=== PATIENT | female | born 1985 | race Caucasian/White ===

== ENCOUNTER 2017-05-05 12:32 | Outpatient (CLI) | payer BC ==
[2017-05-05] VITALS (9 sets, daily range): BP systolic 148–192; BP diastolic 73–109
[~2017-05-05] VITALS: Ht 157.5 cm; Wt 96.6 kg
[2017-05-05 13:35] LABS: BASOPHIL (%) 0.2 % (0-1); EOSINOPHIL (%) 0.6 % (0-5); EOSINOPHIL COUNT 0.1 K/uL (0-0.3); HEMATOCRIT 35.2 % (36.0-46.0); IMMATURE GRANULOCYTE (%) 0.5 % (0.0-0.7); LYMPHOCYTE (%) 17.3 % (15-42); LYMPHOCYTE COUNT 2.2 K/uL (1.0-2.8); MCH 29.6 PG (29.0-34.0); MCHC 34.1 G/DL (30.0-36.0); MCV 86.7 FL (83-99); MONOCYTE (%) 6.3 % (3-12); MONOCYTE COUNT 0.8 K/uL (0-0.8); NEUTROPHIL (%) 75.1 % (45-76); NEUTROPHIL COUNT 9.4 K/uL (1.8-6.4); PLATELET COUNT 291 K/uL (156-360); RBC DIS.WIDTH-CV 14.5 % (11.8-14.6); RBC DIS.WIDTH-SD 46.4 % (39-53); RED BLOOD COUNT 4.06 M/uL (3.80-5.20); WHITE BLOOD COUNT 12.6 K/uL (4.1-10.2)
[2017-05-05 13:53] LABS: ALBUMIN 3.3 G/DL (3.2-4.8); CHLORIDE 108 MEQ/L (99-109); POTASSIUM 4.1 MEQ/L (3.7-5.4); SODIUM 137 MEQ/L (136-147); TOTAL BILIRUBIN 0.3 MG/DL (0.0-1.0)
[2017-05-05 13:59] LABS: ALKALINE PHOSPHATASE 79 IU/L (3-129); ALT (GPT) 14 IU/L (3-49); AST (GOT) 14 IU/L (2-34); CREATININE 0.5 MG/DL (0.6-1.3); GFR ESTIMATE (CALCULATED) > 59 mL/min/; GLUCOSE 79 mg/dL (70-99); LACTATE DEHYDROGENASE 146 IU/L (20-246); TOTAL PROTEIN 6.7 G/DL (6.4-8.3); UREA NITROGEN (BUN) 9 mg/dL (9-23); URIC ACID 5.6 mg/dL (3.1-9.2)
[2017-05-05 15:52] LABS: UR CREATININE CONCENTRATION 69.1 MG/DL
[2017-05-05] MEDS ORDERED: PRENATAL TABLE1 EACH PO (16:35)
[2017-05-05] MEDS ORDERED: CHILD ASPIRIN81 M1 PO (16:35)
== END 2017-05-05 18:20 | disposition short-term general hospital (02) ==
LOC: LDRP-OP → 2WEST 12:34 → LDRP-OP 08-30 12:51
PROVIDERS: Obstetrics & Gynecology
DX: O14.12 Severe pre-eclampsia, second trimester (principal); Z3A.27 27 weeks gestation of pregnancy; O99.212 Obesity complicating pregnancy, second trimester; E66.9 Obesity, unspecified; Z68.32 Body mass index [BMI] 32.0-32.9, adult; O34.219 Maternal care for unspecified type scar from previous cesarean delivery; Z87.891 Personal history of nicotine dependence
CPT/HCPCS: 59025; 76818; 80053; 82570; 83615; 84156; 84550; 85025; 87086; G0378; J0702; J3475; J7120

== ENCOUNTER 2017-05-22 12:03 | Emergency (ER) | payer BC ==
[~2017-05-22] VITALS: Ht 157.5 cm; Wt 89.8 kg
[~2017-05-22 12:03] MED LIST: CHILD ASPIRIN81 M1 PO; PRENATAL TABLE1 EACH PO
[2017-05-22 14:12] LABS: HEMATOCRIT 38.1 % (36.0-46.0); HEMOGLOBIN 13.1 G/DL (11.9-15.5); MCHC 34.4 G/DL (30.0-36.0); MCV 87.4 FL (83-99); RBC DIS.WIDTH-CV 14.1 % (11.8-14.6); RBC DIS.WIDTH-SD 46.1 % (39-53); RED BLOOD COUNT 4.36 M/uL (3.80-5.20); WHITE BLOOD COUNT 11.5 K/uL (4.1-10.2)
[2017-05-22 14:18] LABS: INTER. NORMALIZED RATIO 1.1
[2017-05-22 14:19] LABS: PLATELET COUNT 420 K/uL (156-360)
[2017-05-22 14:20] LABS: PTT 29.7 SEC (25-37)
[2017-05-22 14:22] LABS: ALBUMIN 4.3 g/dL (3.2-4.8); CHLORIDE 110 mEq/L (99-109); POTASSIUM 4.1 mEq/L (3.7-5.4); SODIUM 142 mEq/L (136-147)
[2017-05-22 14:25] LABS: GLUCOSE 79 mg/dL (70-99); TOTAL PROTEIN 7.7 g/dL (6.4-8.3)
[2017-05-22 14:27] LABS: TOTAL BILIRUBIN 0.3 mg/dL (0.0-1.0)
[2017-05-22 14:28] LABS: ALKALINE PHOSPHATASE 133 IU/L (3-129); CREATININE 0.7 mg/dL (0.6-1.3); GFR ESTIMATE (CALCULATED) > 59 mL/min/
[2017-05-22 14:29] LABS: UREA NITROGEN (BUN) 8 mg/dL (9-23)
[2017-05-22 14:30] LABS: AST (GOT) 23 IU/L (2-34)
[2017-05-22 14:31] LABS: ALT (GPT) 29 IU/L (3-49)
[2017-05-22] MEDS ORDERED: LOVENOX80 MG/0.8 SC (15:22)
[2017-05-22 16:21] VITALS: BP 135/98
== END 2017-05-22 16:23 | disposition home or self-care (01) ==
LOC: EME 12:03
PROVIDERS: Physician Assistant
DX: O87.1 Deep phlebothrombosis in the puerperium (principal); I82.622 Acute embolism and thrombosis of deep veins of left upper extremity; Z87.891 Personal history of nicotine dependence
CPT/HCPCS: 80053; 81003; 85027; 85610; 85730; 93971; 99281; 99284; J1650